=== PATIENT | male | born 1975 | race Hispanic/Latino ===

== ENCOUNTER → 2020-07-29 | Outpatient (CLI) | payer MEDICARE ==
[~2020-07-29] MED LIST: ACET-2123 PO; ARIP10TA8 PO; BENZ2TAB10 PO; BUSP30TA2 PO; CARB100C9 PO; CARB15OT AD; CARB200T6 PO; CITA-106 PO; CYCL30DR OU; DIPH25 PO; DIPH30C TP; DIVA250T4 PO; DOCU100C33 PO; DOCU100T PO; GABA400C PO; GUAIF10 PO; HC1C1.5 TP; IBUP-2784 PO; LANO3.5O OU; LIDO240G3 TP; LORA2TAB2 PO; MAG-164 PO; MICO150A TP; MOM30 PO; NEOM1PAC2 TP; PERID15L MM; PHEN-460 PO; PHEN177S29 TD; PHENY100 PO; RISP3TAB44 PO; TIAG4TAB34 PO; TOLN15CR TP; VITA113.3 TP; [UNRECOGNIZED DRUG - CODE] PO; [UNRECOGNIZED DRUG - CODE] TP; [UNRECOGNIZED DRUG - OTHER] TP
== END | disposition home or self-care (01) ==
LOC: RAH 14:07
PROVIDERS: ATTEND Psychiatry & Neurology Neurology
DX: G40.209 Localization-related (focal) (partial) symptomatic epilepsy and epileptic syndromes with complex partial seizures, not intractable, without status epilepticus (principal)
CPT/HCPCS: 70450

== ENCOUNTER 2020-12-09 13:54 | Emergency (ER) | payer MEDICARE ==
[2020-12-09 14:28] LABS: BASOPHILS % (AUTO) 0.2 % (0.0-5.0); HEMATOCRIT 35.2 % (42-54); LYMPHOCYTES % (AUTO) 3.8 % (21.0-51.0); MEAN CORPUSCULAR HEMOGLOBIN 30.8 pg (27.0-33.0); MEAN CORPUSCULAR HGB CONC 34.4 g/dL (32.0-36.0); MEAN CORPUSCULAR VOLUME 89.6 fL (79-99); MONOCYTES % (AUTO) 3.4 % (3.0-13.0); NEUTROPHILS % (AUTO) 92.1 % (40.0-77.0); PLATELET COUNT (AUTO) 225 K/uL (130-400); RED BLOOD CELL COUNT(AUTO) 3.93 MIL/uL (4.50-6.20); RED CELL DISTRIBUTION WIDTH 13.2 % (11.0-15.5)
[2020-12-09] MEDS ORDERED: ACETAMINOPHEN EXTRA STRENGTH 500 MG TABLET ONE (14:33)
[2020-12-09 14:35] LABS: APPEARANCE,URINE Clear (CLEAR); BILIRUBIN,URINE Negative (NEGATIVE); COLOR,URINE Yellow (YELLOW); GLUCOSE, URINE (UA) Negative (NEGATIVE); KETONES,URINE Trace mg/dL (NEGATIVE); LEUKOCYTE ESTERASE ,URINE Large (NEGATIVE); NITRATE,URINE Negative (NEGATIVE); OCCULT BLOOD,URINE Small (NEGATIVE); PROTEIN,URINE POS 1+ mg/dL (NEGATIVE); UROBILINOGEN,URINE 0.2 mg/dL (0.2-1.0)
[2020-12-09 14:56] LABS: RAPID GROUP A STREP NEGATIVE (NEGATIVE)
[2020-12-09] MEDS ORDERED: CEFTRIAXONE SODIUM 1 GM ONE (15:20)
[2020-12-09] MEDS ORDERED: AZITHROMYCIN 250 MG TABLET PO ONE (15:21)
[2020-12-09 15:25] LABS: BACTERIA,URINE Rare /HPF (None Seen); YEAST,URINE BUDDING Few /HPF (None Seen)
[2020-12-09 15:27] LABS: SQUAMOUS EPITHELIAL CELL,UR Rare /HPF (0-2)
== END 2020-12-09 16:14 | disposition home or self-care (01) ==
LOC: EDH 13:54
DX: N30.00 Acute cystitis without hematuria (principal); E86.0 Dehydration; Z20.822 Contact with and (suspected) exposure to COVID-19; F84.0 Autistic disorder
CPT/HCPCS: 36415; 71045; 81001; 83605; 83690; 84484; 85025; 87040 ×2; 87077; 87088; 87186; 87426; 87804 ×2; 87880; 96361; 96365; 99284; J0696; U0003